=== PATIENT | female | born 1995 | race Caucasian/White ===

== ENCOUNTER 2017-06-12 14:54 | Emergency (ER) | payer OTHER ==
[2017-06-12 15:03] VITALS: BP 116/65
--- NOTE | 2017-06-12 15:25 | UC ---
Respiratory Complaint HPI - HPI Summary HPI Summary: CHEST CONGESTION, COUGH X 5 DAYS NO FEVER , NO CHILLS, + NASAL CONGESTION, PND, - History of Current Complaint Chief Complaint: UCRespiratory Stated Complaint: COUGH Time Seen by Provider: 06/12/17 15:15 Hx Obtained From: Patient Hx Last Menstrual Period: 02/2017, mirena ?: No Onset/Duration: Gradual Onset, Lasting Days - 5, Still Present Timing: Constant Severity Initially: Moderate Severity Currently: Moderate Character: Cough: Nonproductive Aggravating Factors: Nothing Alleviating Factors: Nothing Associated Signs And Symptoms: Positive: Chills, URI, Nasal Congestion. Negative: Fever, Pleuritic Chest Pain, Wheezing, Hemoptysis, Dizziness, Calf Pain, Calf Swelling - Allergies/Home Medications Allergies/Adverse Reactions: Allergies Allergy/AdvReac Type Severity Reaction Status Date / Time Penicillins Allergy Anaphylatic Verified 06/12/17 15:03 Shock Acyclovir AdvReac See Comment Verified 06/12/17 15:04 Home Medications: Home Medications Levonorgestrel (Iud) [Mirena IUD] 20 mcg IU ONCE 06/12/17 [History Confirmed ] PMH/Surg Hx/FS Hx/Imm Hx Respiratory History: Pneumonia - Surgical History Surgical History: None - Family History Known Family History: Negative: Diabetes - Social History Alcohol Use: Occasionally Substance Use Type: None Smoking Status (MU): Light Every Day Tobacco Smoker Type: Cigarettes Amount Used/How Often: 3-4 cigs per day - Immunization History Most Recent Influenza Vaccination: no Review of Systems Constitutional: Chills, Fatigue Skin: Negative Eyes: Negative ENT: Sore Throat, Nasal Discharge Respiratory: Cough Cardiovascular: Negative Gastrointestinal: Negative Is Patient Immunocompromised?: No All Other Systems Reviewed And Are Negative: Yes Physical Exam Triage Information Reviewed: Yes Appearance: Well-Appearing, No Pain Distress, Well-Nourished Vital Signs: Initial Vital Signs Temp 98.4 F 06/12/17 14:58 Pulse 62 06/12/17 14:58 Resp 16 06/12/17 14:58 BP 116/65 06/12/17 14:58 Pulse Ox 97 06/12/17 14:58 Vital Signs Reviewed: Yes Eyes: Positive: Conjunctiva Clear ENT Exam: Normal ENT: Positive: Normal ENT inspection, Hearing grossly normal Neck exam: Normal Neck: Positive: Supple, Nontender, No Lymphadenopathy Respiratory: Positive: Chest non-tender, Lungs clear, Normal breath sounds, No respiratory distress Cardiovascular: Positive: RRR, No Murmur, Pulses Normal Skin Exam: Normal UC Diagnostic Evaluation - Laboratory O2 Sat by Pulse Oximetry: 97 Respiratory Course/Dx - Differential Dx/Diagnosis Provider Diagnoses: BRONCHITIS Discharge - Discharge Plan Condition: Stable Disposition: HOME Prescriptions: Azithromycin TAB* [Zithromax TAB (Z-AMELIA) 250 mg #6 tabs] 2 tab PO .TODAY, THEN 1 DAILY #1 amelia Patient Education Materials: Acute Bronchitis (ED) Forms: *Work Release Referrals: No Primary Care Phys,NOPCP [Primary Care Provider] - If Needed
== END 2017-06-12 15:41 | disposition home or self-care (01) ==
LOC: UCCORT 14:54
DX: J40 Bronchitis, not specified as acute or chronic (principal); Z88.0 Allergy status to penicillin; Z88.8 Allergy status to other drugs, medicaments and biological substances; F17.210 Nicotine dependence, cigarettes, uncomplicated
CPT/HCPCS: 99212; G0463

== ENCOUNTER 2017-08-20 09:57 | Emergency (ER) | payer OTHER ==
[2017-08-20 11:30] VITALS: BP 122/83
--- NOTE | 2017-08-20 11:34 | UC ---
Ear Complaint HPI - HPI Summary HPI Summary: worsening ear aches past 3 days, fever up to 100 - History of Current Complaint Chief Complaint: UCEar Stated Complaint: LEFT EAR COMPLAINT Time Seen by Provider: 08/20/17 11:22 Hx Obtained From: Patient Hx Last Menstrual Period: FEBRUARY, HAS THE MIRENA IUD ?: No Onset/Duration: Sudden Onset, Lasting Days - 3, Still Present Severity Initially: Moderate Severity Currently: Moderate Pain Intensity: 8 Pain Scale Used: 0-10 Numeric Aggravating Factors: Nothing Alleviating Factors: Nothing - Allergies/Home Medications Allergies/Adverse Reactions: Allergies Allergy/AdvReac Type Severity Reaction Status Date / Time Penicillins Allergy Anaphylatic Verified 08/20/17 11:23 Shock Acyclovir AdvReac See Comment Verified 08/20/17 11:23 Home Medications: Home Medications Ibuprofen TAB* [Advil TAB*] 800 mg PO Q6H PRN 08/20/17 [History Confirmed ] PMH/Surg Hx/FS Hx/Imm Hx Previously Healthy: Yes - Surgical History Surgical History: None - Family History Known Family History: Negative: Diabetes - Social History Occupation: Employed Full-time Lives: With Family Alcohol Use: Occasionally Substance Use Type: None Smoking Status (MU): Light Every Day Tobacco Smoker Type: Cigarettes Amount Used/How Often: 3-4 cigs per day Have You Smoked in the Last Year: Yes - Immunization History Most Recent Influenza Vaccination: JUN 2017 Review of Systems Constitutional: Chills, Fatigue Skin: Negative Eyes: Negative ENT: Ear Ache - left Respiratory: Negative Cardiovascular: Negative Gastrointestinal: Negative Genitourinary: Negative Motor: Negative Neurovascular: Negative Musculoskeletal: Negative Neurological: Negative Psychological: Negative Is Patient Immunocompromised?: No All Other Systems Reviewed And Are Negative: Yes Physical Exam Triage Information Reviewed: Yes Appearance: Well-Appearing, No Pain Distress, Well-Nourished Vital Signs: Initial Vital Signs Temp 98.6 F 08/20/17 11:24 Pulse 67 08/20/17 11:24 Resp 14 08/20/17 11:24 BP 122/83 08/20/17 11:24 Pulse Ox 99 08/20/17 11:24 Vital Signs Reviewed: Yes Eye Exam: Normal Eyes: Positive: Conjunctiva Clear ENT Exam: Normal ENT: Positive: Normal ENT inspection, Hearing grossly normal, Pharynx normal, TMs normal - right, TM bulging - left, Uvula midline. Negative: Nasal congestion, Nasal drainage, Trismus, Muffled voice, Hoarse voice, Dental tenderness, Sinus tenderness Dental Exam: Normal Neck exam: Normal Neck: Positive: Supple, Nontender Respiratory Exam: Normal Respiratory: Positive: Chest non-tender, Lungs clear, Normal breath sounds, No respiratory distress, No accessory muscle use Cardiovascular Exam: Normal Cardiovascular: Positive: RRR, No Murmur, Pulses Normal, Brisk Capillary Refill Musculoskeletal Exam: Normal Musculoskeletal: Positive: Strength Intact, ROM Intact, No Edema Neurological Exam: Normal Neurological: Positive: Alert, Muscle Tone Normal Psychological Exam: Normal Psychological: Positive: Normal Response To Family, Age Appropriate Behavior Skin Exam: Normal Ear Complaint Course/Dx - Course Course Of Treatment: Ibuprofen, zithromax increase fluids, rest follow with pcp - Differential Dx/Diagnosis Provider Diagnoses: Left otitis Media Discharge - Discharge Plan Condition: Stable Disposition: HOME Prescriptions: Azithromycin TAB* [Zithromax TAB (Z-AMELIA) 250 mg #6 tabs] 2 tab PO .TODAY, THEN 1 DAILY #1 amelia Patient Education Materials: Ibuprofen (By mouth), Otitis Media (ED) Forms: *Work Release Referrals: [facility] [place] [facility] [place] [facility] [Outside] - If Needed
== END 2017-08-20 11:42 | disposition home or self-care (01) ==
LOC: UCCORT 09:57
DX: H66.92 Otitis media, unspecified, left ear (principal); Z88.0 Allergy status to penicillin; F17.210 Nicotine dependence, cigarettes, uncomplicated
CPT/HCPCS: 99212; G0463

== ENCOUNTER 2018-11-12 11:43 | Emergency (ER) | payer OTHER ==
[2018-11-12 12:06] VITALS: BP 120/72
--- NOTE | 2018-11-12 12:20 | UC ---
UC General HPI - HPI Summary HPI Summary: DAY 7 OF SINUS PAIN, PRESSURE AND CONGESTION PLUS COUGH WITH CONGESTION. NO RELIEF WITH MULTIPLE OTC TX'S. TODAY, EARS HURT. NO FEVER, HX ASTHMA. NASAL D/C IS A THICK WHITE TO YELLOW. NO BLOOD FROM NOSE. - History of Current Complaint Chief Complaint: UCGeneralIllness Stated Complaint: HEADACHE,CONGESTION,COUGH,ST Time Seen by Provider: 11/12/18 12:14 Hx Obtained From: Patient Hx Last Menstrual Period: mirena Onset/Duration: Gradual Onset Timing: Constant Pain Intensity: 8 - Allergy/Home Medications Allergies/Adverse Reactions: Allergies Allergy/AdvReac Type Severity Reaction Status Date / Time acyclovir Allergy See Comment Verified 11/12/18 12:01 Penicillins Allergy Anaphylatic Verified 11/12/18 12:01 Shock Home Medications: Home Medications Ibuprofen/Pseudoephedrine HCl [Advil Cold & Sinus] 2 tab PO ONCE 11/12/18 [ History Confirmed 11/12/18] ValACYclovir (*) [Valtrex 500 mg (*)] 500 mg PO DAILY 11/12/18 [History Confirmed 11/12/18] PMH/Surg Hx/FS Hx/Imm Hx Previously Healthy: Yes - Surgical History Surgical History: None - Family History Known Family History: Negative: Diabetes - Social History Occupation: Employed Full-time Alcohol Use: Occasionally Substance Use Type: Marijuana Substance Use Comment - Amount & Last Used: daily Smoking Status (MU): Light Every Day Tobacco Smoker Type: eCigarettes Amount Used/How Often: juele Have You Smoked in the Last Year: Yes - Immunization History Most Recent Influenza Vaccination: JUN 2017 Vaccination Up to Date: Yes Review of Systems All Other Systems Reviewed And Are Negative: Yes Constitutional: Positive: Negative Skin: Positive: Negative Eyes: Positive: Negative ENT: Positive: Ear Ache, Nasal Discharge, Sinus Congestion, Sinus Pain/ Tenderness Respiratory: Positive: Cough. Negative: Shortness Of Breath Cardiovascular: Negative: Chest Pain Gastrointestinal: Positive: Negative Genitourinary: Positive: Negative Motor: Positive: Negative Neurovascular: Positive: Negative Musculoskeletal: Positive: Negative Neurological: Positive: Negative Psychological: Positive: Negative Physical Exam Triage Information Reviewed: Yes Appearance: Well-Appearing Vital Signs: Initial Vital Signs Temp 98.9 F 11/12/18 12:03 Pulse 98 11/12/18 12:03 Resp 17 11/12/18 12:03 BP 120/72 11/12/18 12:03 Pulse Ox 97 11/12/18 12:03 Vital Signs Reviewed: Yes Eyes: Positive: Conjunctiva Clear ENT: Positive: Pharynx normal, Nasal congestion, TMs normal - CANALS CLEAR. NO AURICULAR ADENOPATHY OR MASTOID TENDERNESS., Sinus tenderness. Negative: Nasal drainage Neck: Positive: Supple, Nontender, No Lymphadenopathy Respiratory: Positive: Lungs clear, No respiratory distress, Decreased breath sounds - slightly, Other: - cough is congested Cardiovascular: Positive: RRR, No Murmur Abdomen Description: Positive: Nontender, No Organomegaly, Soft Bowel Sounds: Positive: Present Musculoskeletal: Positive: ROM Intact Neurological: Positive: Alert Psychological: Positive: Age Appropriate Behavior Skin Exam: Normal Course/Dx - Course Course Of Treatment: day 7 of illness. will tx with an mdi and decongestant advised. if sinus s/s's not improved in 3 days, pt to start the antibiotic or start if sooner for worsening. - Differential Dx - Multi-Symptom Differential Diagnoses: Other - uri, sinusitis, bronchitis, pneumonia - Diagnoses Provider Diagnosis: URI (upper respiratory infection), Bronchitis Discharge - Sign-Out/Discharge Documenting (check all that apply): Patient Departure All imaging exams completed and their final reports reviewed: No Studies - Discharge Plan Condition: Stable Disposition: HOME Prescriptions: Albuterol HFA INHALER* [Ventolin HFA Inhaler*] 2 puff INH Q6H #1 mdi DOXYcycline CAP(*) [DOXYcycline 100MG CAP(*)] 100 mg PO BID 10 Days #20 cap Patient Education Materials: Upper Respiratory Infection (DC), Acute Bronchitis (ED) Forms: *Work Release Referrals: Roya Baptiste [Primary Care Provider] - 7 Days Additional Instructions: IF YOU DO NOT IMPROVE OVER THE NEXT 3 DAYS, START THE DOXYCYCLINE. START IT SOONER FOR ANY WORSENING IN SINUS SYMPTOMS - Billing Disposition and Condition Condition: STABLE Disposition: Home
== END 2018-11-12 12:35 | disposition home or self-care (01) ==
LOC: UCCORT 11:43
DX: J06.9 Acute upper respiratory infection, unspecified (principal); J40 Bronchitis, not specified as acute or chronic; F17.290 Nicotine dependence, other tobacco product, uncomplicated; Z88.1 Allergy status to other antibiotic agents; Z88.0 Allergy status to penicillin
CPT/HCPCS: 99212; G0463

== ENCOUNTER 2019-06-10 11:36 | Emergency (ER) | payer OTHER ==
--- OUTSIDE RECORDS SUMMARY | 2019-06-10 11:42 | XMS REPORT | Continuity of Care Document ---
:1995 External Reference #:[id number] Author Name Sebastián Bird M.D. (transmitted by agent of provider Zarina Boyer) Address [address] [place] [address] Care Team Providers Name Role Phone Santos Miguel NP - Nurse Practitioner Care Team Information Supervisor Lime Problems Description No Information Available Social History Type Date Description Comments Sex Unknown Cigarette Use Quit 1 Year Ago ETOH Use Rare Use Of Alcohol Recreational Drug Use Denies Drug Use Allergies, Adverse Reactions, Alerts Active Allergies Reaction Severity Comments Date Acyclovir Dizziness, Nausea, slurred speech 05/27/2019 Penicillin Hives, throat closes 05/27/2019 Medications Active Medications SIG Qnty Indications Ordering Provider Date Levocetirizine 1 by mouth every Unknown Dihydrochloride day 5mg Tablets Dicyclomine HCL 1 cap by mouth Unknown 10mg Capsules three times a day as needed Valacyclovir HCL one tab twice Unknown 500mg daily Tablets Mometasone Furoate 2 squirts each Unknown 50mcg/Act nostril every Suspension day Immunizations Description No Information Available Vital Signs Date Vital Result Comment 05/27/2019 11:45am Weight 108.00 lb Height 64 inches 5'4" BMI (Body Mass Index) 18.5 kg/m2 BP Systolic 120 mmHg BP Diastolic 76 mmHg Heart Rate 74 /min O2 % BldC Oximetry 98 % Body Temperature 98.0 F Pain Level 0 Results Description No Information Available Procedures Date Code Description Status 05/27/2019 15072 Nasal Endoscopy, Diag. Completed Medical Devices Description No Information Available Encounters Type Date Location Provider Dx Diagnosis Office Visit 05/27/2019 Main Office Sebastián Bird M.D. J34.3 Hypertrophy of nasal 11:30a turbinates J34.2 Deviated nasal septum J32.9 Chronic sinusitis, unspecified Assessments Date Code Description Provider 05/27/2019 J34.3 Hypertrophy of nasal turbinates Sebastián Bird M.D. 05/27/2019 J34.2 Deviated nasal septum Sebastián Bird M.D. 05/27/2019 J32.9 Chronic sinusitis, unspecified Sebastián Bird M.D. Plan of Treatment Future Appointment(s):07/08/2019 10:15 am - Jaclyn Carrilol NP at Main [id number]/01/2019 12:00 pm - Pelon Diane at [facility] Functional Status Description No Information Available Mental Status Description No Information Available Referrals Description No Information Available
[2019-06-10 12:08] VITALS: BP 102/76
[2019-06-10] MEDS ORDERED: predniSONE TAB* 20 MG PO ONE (12:32)
--- NOTE | 2019-06-10 12:48 | UC ---
Skin Complaint HPI - History of Current Complaint Chief Complaint: UCAllergicReaction Time Seen by Provider: 06/10/19 12:20 Stated Complaint: RASH Hx Obtained From: Patient, Family/Migration Agent - Hx Last Menstrual Period: March- none since- had mirena removed. ?: No - recent D&C Onset/Duration: Sudden Onset, Lasting Days - started yesterday Timing: Constant Current Severity: None Pain Intensity: 0 Pain Scale Used: 0-10 Numeric Location: Diffuse Character: Pruritus, Redness, Raised Aggravating Factor(s): Nothing Alleviating Factor(s): Antihistamines - benadryl minimal help Associated Signs & Symptoms: Negative: Nausea, Vomiting, Diaphoresis, Weakness, Pallor, Shivering, Difficulty Breathing, Chills, Wheezing, Chest Pain, Hoarseness, Throat Tightening, Lightheadedness, Drainage, Tenderness, Red Streaks Related History: Recent change in medication - Flagyl - Allergy/Home Medications Allergies/Adverse Reactions: Allergies Allergy/AdvReac Type Severity Reaction Status Date / Time acyclovir Allergy See Comment Verified 06/10/19 12:09 Penicillins Allergy Anaphylatic Verified 06/10/19 12:09 Shock Home Medications: Home Medications Metoclopramide TAB* [Reglan TAB*] 10 mg PO DAILY 06/10/19 [History Confirmed ] PMH/Surg Hx/FS Hx/Imm Hx Previously Healthy: Yes Other History Of: Negative For: Anticoagulant Therapy - Surgical History Surgical History: None - Family History Known Family History: Positive: Hypertension, Non-Contributory Negative: Diabetes - Social History Alcohol Use: Occasionally Substance Use Type: None Substance Use Comment - Amount & Last Used: daily Smoking Status (MU): Former Smoker Type: eCigarettes Amount Used/How Often: juele Have You Smoked in the Last Year: Yes When Did the Patient Quit Smoking/Using Tobacco: 09/2018 - Immunization History Most Recent Influenza Vaccination: JUN 2017 Vaccination Up to Date: Yes Review of Systems All Other Systems Reviewed And Are Negative: Yes Constitutional: Positive: Negative Skin: Positive: Rash ENT: Negative: Sore Throat, Nasal Discharge, Sinus Congestion, Sinus Pain/ Tenderness Respiratory: Negative: Shortness Of Breath, Cough Is Patient Immunocompromised?: No Physical Exam Triage Information Reviewed: Yes Appearance: Well-Appearing, No Pain Distress, Well-Nourished Vital Signs: Initial Vital Signs Temp 98 F 06/10/19 12:06 Pulse 86 06/10/19 12:06 Resp 18 06/10/19 12:06 BP 102/76 06/10/19 12:06 Pulse Ox 100 06/10/19 12:06 Vital Signs Reviewed: Yes Eyes: Positive: Conjunctiva Clear ENT: Positive: Pharynx normal Respiratory: Positive: Chest non-tender, Lungs clear, Normal breath sounds, No respiratory distress, No accessory muscle use Musculoskeletal: Positive: Strength Intact, ROM Intact Skin: Positive: Other - multiple rasied, circular lesions without central clearing, no drainage, no vesicles, with distinct borders consistent with urticia over b/l LE, buttock, lower abdomen. Less involved but present on UE, face. non-tender, + pruritic. no SOB, talking without difficulty Course/Dx - Course Course Of Treatment: Diffuse allergic reaction without anaplyaxis, likely caused by Flagyl. Prednisone taper: 06/10- given at 06/11- 50mg /- 40mg /- 30mg 9/28- 20mg 9/29- 10mg - Go to ER immediately with shortness of breath, throat swelling/ irritation - Stop Flagyl, call [employer] COUNSELOR to see if they want another medication - Benadryl as needed for itch - Increase fluid intake - Work note if needed - Diagnoses Provider Diagnosis: Allergic reaction caused by a drug Discharge ED - Sign-Out/Discharge Documenting (check all that apply): Patient Departure All imaging exams completed and their final reports reviewed: No Studies - Discharge Plan Condition: Good Disposition: HOME Prescriptions: predniSONE TAB* [Deltasone 10 MG TAB*] 10 mg PO DAILY #15 tab Patient Education Materials: Urticaria (ED) Forms: *Work Release Referrals: Roya Baptiste [Primary Care Provider] - Additional Instructions: Prednisone taper: 06/10- given at 06/11- 50mg 9/- 40mg 9/27- 30mg 9/28- 20mg 9/29- 10mg - Go to ER immediately with shortness of breath, throat swelling/ irritation - Stop Flagyl, call [employer] COUN[employer] to see if they want another medication - Benadryl as needed for itch - Increase fluid intake - Work note if needed - Billing Disposition and Condition Condition: GOOD Disposition: Home
== END 2019-06-10 12:45 | disposition home or self-care (01) ==
LOC: UCEAST 11:36
DX: T37.3X5A Adverse effect of other antiprotozoal drugs, initial encounter (principal); Y92.9 Unspecified place or not applicable; Z87.891 Personal history of nicotine dependence; Z88.0 Allergy status to penicillin
CPT/HCPCS: 99212; G0463; J7512